=== PATIENT | male | born 2000 | race Caucasian/White ===

== ENCOUNTER 2022-07-03 13:56 | Emergency (ER) | payer OTHER ==
[2022-07-03] MEDS ORDERED: SODIUM CHLORIDE 0.9% 1,000 ML IV STA (14:12)
--- NOTE | 2022-07-03 14:22 | ED Physician Documentation ---
History of Present Illness - Stated complaint Stated Complaint: FEVER/ABD PX - Chief complaint Chief Complaint: Abd Pain - Additonal information Additional information: 22-year-old male presents emergency department for evaluation of lower abdominal pain has been present for about 1 week. Sometimes its in the right quadrant sometimes is in the lower left. He denies any constipation or straining with bowel movements. He did have low-grade fevers yesterday up to 100 degrees. He denies dysuria or hematuria but states his urine is darker than normal. He did speak with [facility] regarding his fevers a few days ago and was prescribed Tylenol but no other treatment was rendered. Denies any pertinent past medical history. Takes no prescribed medications. He does use tobacco. Rare alcohol use. Review of Systems Constitutional: denies: Fever, Chills Cardiac: reports: Reviewed and negative Respiratory: reports: Reviewed and negative GI: reports: Abdominal Pain, Nausea. denies: Vomiting, Constipation, Diarrhea, Bloody / black stool : denies: Dysuria Skin: reports: Reviewed and negative Musculoskeletal: reports: Reviewed and negative PD PAST MEDICAL HISTORY - Present Medications Home Medications: Ambulatory Orders Medication Instructions Recorded Confirmed Acetaminophen [Tylenol] 650 mg PO Q6H PRN 07/03/22 07/03/22 - Allergies Allergies/Adverse Reactions: Allergies Allergy/AdvReac Type Severity Reaction Status Date / Time Sulfa (Sulfonamide Allergy Unknown Verified 07/03/22 14:38 Antibiotics) PD ED PE NORMAL - General General: Alert and oriented X 3, No acute distress - HEENT HEENT: PERRL - Neck Neck: Supple, no meningeal sign, No adenopathy - Cardiac Cardiac: RRR, No murmur - Respiratory Respiratory: No respiratory distress, Clear bilaterally - Abdomen Abdomen: Normal bowel sounds, Soft. No: Non tender (generally tender abdomen; most dominate RUQ. + rebound. ) - Back Back: No CVA TTP - Derm Derm: Normal color, Warm and dry, No rash - Extremities Extremities: No deformity - Neuro Neuro: Alert and oriented X 3 Eye Opening: Spontaneous Motor: Obeys Commands Verbal: Oriented GCS Score: 15 Results - Vitals Vitals: Vital Signs - 24 hr 07/03/22 07/03/22 07/03/22 14:01 14:33 15:50 Temperature 36.6 C Heart Rate 95 75 63 Respiratory 16 16 16 Rate Blood Pressure 151/71 H 120/69 107/57 L O2 Saturation 99 99 100 Oxygen O2 Source Room air - Labs Labs: Laboratory Tests 07/03/22 07/03/22 07/03/22 14:18 14:26 14:26 WBC 11.9 H RBC 4.43 L Hgb 13.2 L Hct 39.6 L MCV 89.4 MCH 29.8 MCHC 33.3 RDW 12.1 Plt Count 103 L MPV 10.9 Neut # (Auto) Not Reportable Lymph # (Auto) Not Reportable [place] # (Auto) Not Reportable Eos # (Auto) Not Reportable Baso # (Auto) Not Reportable Absolute Nucleated RBC Not Reportable Total Counted 100 Band Neuts % (Manual) 1 Reactive Lymphs % (Man) 39 Abnorm Lymph % (Manual) 0 Nucleated RBC % Not Reportable Neutrophils # (Manual) 2.5 Lymphocytes # (Manual) 8.8 H Monocytes # (Manual) 0.5 Eosinophils # (Manual) 0.0 Basophils # (Manual) 0.1 Differential Comment MANUAL DIFFERENTIAL Platelet Estimate DECREASED (<130,000) Platelet Morphology NORMAL APPEARANCE RBC Morph Micro Appear NORMAL APPEARANCE Sodium 137 Potassium 3.3 L Chloride 105 Carbon Dioxide 27 Anion Gap 5.0 L BUN 11 Creatinine 0.9 Estimated GFR (MDRD) 106 Glucose 166 H Calcium 8.7 Total Bilirubin 1.6 H AST 454 H ALT 700 H Alkaline Phosphatase 132 H Total Protein 6.8 Albumin 3.4 Globulin 3.4 Albumin/Globulin Ratio 1.0 Lipase 44 Urine Color YELLOW Urine Clarity CLEAR Urine pH 6.0 Ur Specific [place] 1.015 Urine Protein NEGATIVE Urine Glucose (UA) 250 H Urine Ketones TRACE Urine Occult Blood NEGATIVE Urine Nitrite NEGATIVE Urine Bilirubin SMALL H Urine Urobilinogen 4 H Ur Leukocyte Esterase NEGATIVE Ur Microscopic Review NOT INDICATED Urine Culture Comments NOT INDICATED Acetaminophen 07/03/22 14:26 WBC RBC Hgb Hct MCV MCH MCHC RDW Plt Count MPV Neut # (Auto) Lymph # (Auto) [place] # (Auto) Eos # (Auto) Baso # (Auto) Absolute Nucleated RBC Total Counted Band Neuts % (Manual) Reactive Lymphs % (Man) Abnorm Lymph % (Manual) Nucleated RBC % Neutrophils # (Manual) Lymphocytes # (Manual) Monocytes # (Manual) Eosinophils # (Manual) Basophils # (Manual) Differential Comment Platelet Estimate Platelet Morphology RBC Morph Micro Appear Sodium Potassium Chloride Carbon Dioxide Anion Gap BUN Creatinine Estimated GFR (MDRD) Glucose Calcium Total Bilirubin AST ALT Alkaline Phosphatase Total Protein Albumin Globulin Albumin/Globulin Ratio Lipase Urine Color Urine Clarity Urine pH Ur Specific [place] Urine Protein Urine Glucose (UA) Urine Ketones Urine Occult Blood Urine Nitrite Urine Bilirubin Urine Urobilinogen Ur Leukocyte Esterase Ur Microscopic Review Urine Culture Comments Acetaminophen < 10 L - Rads (name of study) cxr Relevant Findings:: Final report received (No acute cardiopulmonary process) abd US Relevant Findings:: See rad report, Other (Per manufacturing engineering technologist negative for findings to suggest acute cholecystitis or cholelithiasis. Contracted gallbladder. Gallbladder wall is not thickened. No pericholecystic fluid. CBD [address] abd Relevant Findings:: Final report received (11 mm lesion right liver dome. Hemangioma versus complicated cyst.Fatty liver. Gallbladder wall is mildly hyperenhancing.) PD Medical Decision Making - ED course Complexity details: reviewed results, re-evaluated patient, considered differential, d/w patient ED course: 22-year-old male was brought to the emergency department for evaluation of 4 to 5 days abdominal discomfort and low-grade fevers at home. He did see [facility] on Wednesday and was started on Tylenol 325 mg every 4-6 hours to help with symptoms. He has taken on average 2 to 3 tablets of Tylenol a day for the last 2 to 3 days. Given that the abdominal discomfort has not dissipated he presents to the ER. On exam he was modestly tender in the right upper quadrant. We did obtain a CBC and electrolytes. Per my interpretation no significant findings were that of abnormal LFTs. His T. bili was modestly elevated at 1.6. ALT was 740 and AST was in the 350s. I discussed with patient and he denies excessive alcohol use. He last drink about 2 weeks ago and that was a solitary drink. 7 to 8 months ago he would drink 4-5 drinks in a setting however only once a week. Given the concerns of abnormal liver function test as well as recent Tylenol prescription Tylenol level was obtained and is not elevated. In addition it does not seem that he had abnormal Tylenol use in the preceding few days. His alcohol use also does not seem to be a predisposing factor. I did obtain an abdominal ultrasound that was unremarkable for findings of acute cholecystitis or gallbladder disease. Subsequently a CT of the abdomen was completed with contrast which again does not demonstrate acute gallbladder disease. There was a cyst noted within the right liver. This likely represents a complex cyst versus hemangioma. Patient is advised to follow this up as an outpatient. At this time the etiology of the abnormal liver function test, abdominal pain and low-grade fevers is not clear. A viral hepatitis panel is pending. I have advised patient to follow-up with [facility] in 72 hours time in order to have his LFTs reevaluated. If over the course of the weekend he is having worsening symptoms he will return to the ER. In addition to this he is vies to avoid alcohol and acetaminophen. Departure - Departure Disposition: Home, Self Care Clinical Impression: Abnormal liver function tests, Liver lesion Abdominal pain Qualifiers: Abdominal location: upper abdomen, unspecified Qualified Code(s): R10.10 - Upper abdominal pain, unspecified Condition: Stable Record reviewed to determine appropriate education?: Yes Instructions: Abdominal Pain, Liver Disease Testing Ch Comments: As discussed at the bedside you have had several days of some generalized abdominal pain as well as low-grade fevers. Here in the emergency department you did have abnormal liver function testing. We did evaluate your Tylenol level which was normal. An ultrasound of your abdomen did not show gallbladder disease. A CT of the abdomen also did not show gallbladder disease. It is possible that the cause of the abnormal liver function test is simply a virus. A viral hepatitis panel is pending. We will not have the results for several days. You can follow them up on the [facility] codetag portal though we will notify you if they are abnormal. The CT scan does show a cyst within your right liver that is likely a hemangioma or complex cyst. This should be reevaluated as an outpatient I would like you to discuss this ED visit with [facility]. Your liver function tests should be reevaluated on Wednesday to determine if they are trending up or down. I would like you to avoid Tylenol until cleared by your doctor. If you are having fever abdominal discomfort you can take small amount of ibuprofen 600 mg with food 2-3 times a day. If over the course of the week and you find that you are having worsening symptoms, develop new fevers, have severe abdominal pain or noticed any yellowing of your skin you should return immediately to the emergency department.
[2022-07-03 14:40] LABS: BASOPHILS % (AUTO) 1.3 %; EOSINOPHILS % (AUTO) 0.1 %; HCT - HEMATOCRIT 39.6 % (42.0-52.0); HGB - HEMOGLOBIN 13.2 g/dL (14.0-18.0); LYMPHOCYTES % (AUTO) 84.4 %; MEAN CORPUSCULAR HEMOGLOBIN 29.8 pg (27.0-31.0); MEAN CORPUSCULAR HGB CONC 33.3 g/dL (32.0-36.0); MEAN CORPUSCULAR VOLUME 89.4 fL (80.0-94.0); MEAN PLATELET VOLUME 10.9 fL (7.4-11.4); MONOCYTES % (AUTO) 2.6 %; NEUTROPHILS % (AUTO) 11.4 %; PLT - PLATELET COUNT 103 10^3/uL (130-450); RED BLOOD COUNT 4.43 10^6/uL (4.70-6.10); RED CELL DISTRIBUTION WIDTH 12.1 % (12.0-15.0); WHITE BLOOD COUNT 11.9 x10^3/uL (4.8-10.8)
[2022-07-03 14:43] LABS: GLUCOSE, URINE (UA) 250 mg/dL (NEGATIVE); KETONES,URINE (UA) TRACE mg/dL (NEGATIVE); LEUKOCYTE ESTERASE, URINE NEGATIVE (NEGATIVE); NITRITE,URINE NEGATIVE (NEGATIVE); OCCULT BLOOD,URINE NEGATIVE (NEGATIVE); PROTEIN,URINE NEGATIVE (NEGATIVE); UROBILINOGEN,URINE 4 E.U./dL (NORMAL)
[2022-07-03 14:44] LABS: ABNORMAL LYMPHS % (MANUAL) 0 %
[2022-07-03 14:48] LABS: BILIRUBIN,URINE SMALL (NEGATIVE); CLARITY,URINE CLEAR (CLEAR); ICTOTEST,URINE POSITIVE
[2022-07-03 15:00] LABS: ALBUMIN 3.4 g/dL (3.2-5.5); BILIRUBIN,TOTAL 1.6 mg/dL (0.2-1.0); CALCIUM 8.7 mg/dL (8.5-10.3); CREATININE 0.9 mg/dL (0.6-1.2); POTASSIUM 3.3 mmol/L (3.5-5.0); TOTAL PROTEIN 6.8 g/dL (6.7-8.2)
--- NOTE | 2022-07-03 15:03 | XRAY Report ---
PROCEDURE: Chest 1 View X-Ray INDICATIONS: chest pain TECHNIQUE: One view of the chest was acquired. COMPARISON: None. FINDINGS: Surgical changes and devices: None. Lungs and pleura: No pleural effusions or pneumothorax. Lungs are clear. Mediastinum: Mediastinal contours appear normal. Heart size is normal. Bones and chest wall: No suspicious bony lesions. Overlying soft tissues appear unremarkable. IMPRESSION: No acute cardiopulmonary process. Reviewed by: Boby Wilson on 07/03/2022 3:02 PM PDT Approved by: Boby Wilson on 07/03/2022 3:02 PM PDT Station ID: [id number]
[2022-07-03 15:35] LABS: BAND NEUTROPHILS % (MANUAL) 1 %; BASOPHILS # (MANUAL) 0.1 10^3/uL (0-0.1); BASOPHILS % (MANUAL) 1 %; LYMPHOCYTES # (MANUAL) 8.8 10^3/uL (1.5-3.5); LYMPHOCYTES % (MANUAL) 35 %; MONOCYTES # (MANUAL) 0.5 10^3/uL (0.0-1.0); NEUTROPHILS # (MANUAL) 2.5 10^3/uL (1.5-6.6); REACTIVE LYMPHS % (MANUAL) 39 %
[2022-07-03 15:36] LABS: DIFFERENTIAL COMMENT MANUAL DIFFERENTIAL; PLATELET ESTIMATE, MANUAL DECREASED (<130,000) (NORMAL); PLATELET MORPHOLOGY NORMAL APPEARANCE (NORMAL); RBC MORPHOLOGY (MULTIPLE) NORMAL APPEARANCE (NORMAL)
[2022-07-03] MEDS ORDERED: iohexoL-300 100 ML VIAL IVP ONE (16:27)
[2022-07-03] MEDS ORDERED: iohexoL-300 100 ML VIAL ONE (16:32)
--- NOTE | 2022-07-03 16:39 | CT Report ---
PROCEDURE: ABDOMEN/PELVIS W INDICATIONS: lower abdominal pain CONTRAST: 100 ml omni 300 TECHNIQUE: After the administration of IV contrast, 5 mm thick sections acquired from the diaphragms to the symp hysis. 5 mm thick coronal and sagittal reformats were acquired. For radiation dose reduction, the f ollowing was used: automated exposure control, adjustment of mA and/or kV according to patient size. COMPARISON: Correlation is made with the accompanying chest radiograph and abdominal ultrasound, 07/03 FINDINGS: Image quality: Excellent. Lung bases and heart: Unremarkable. Liver: Within the right liver dome, there is an 11 mm low-density lesion that measures 45 Hounsfield units and can't be defined as a simple cyst. Incidental note is made of focal fatty infiltration behzad cent to the falciform ligament, which is not regarded to the frankly pathologic. Gallbladder and biliary tree: The gallbladder wall is mildly hyperenhancing. Spleen: The spleen is enlarged, measuring 15.8 cm craniocaudal. Pancreas: Unremarkable. Adrenals: Unremarkable. Kidneys and ureters: Unremarkable. Bowel and peritoneum: No bowel distension. No pathologic free fluid. A normal appendix is seen. Lymph nodes: No central or retroperitoneal adenopathy. Vessels: Unremarkable. PELVIS Reproductive organs: Unremarkable. Bladder: Unremarkable. Lymph nodes: Unremarkable. Bones: No aggressive osseous abnormality. Other: None. IMPRESSION: Normal appendix No dilated loops of small bowel are seen. Splenomegaly. Within the right liver dome, there is an 11 mm lesion that cannot be defined as a simple cyst. Robert ioma versus a complicated cyst are most likely in a patient of this age. Attention should be paid to this focus on any future follow-up studies. Abnormal gallbladder by CT, with gallbladder wall hyperenhancement. However, a contracted, yet otherw ise normal gallbladder can be seen on the accompanying abdominal ultrasound. Reviewed by: Raleigh Rodríguez MD on 07/03/2022 3:37 PM KYLER Approved by: Raleigh Rodríguez MD on 07/03/2022 3:37 PM [place] Station ID: [id number]
--- NOTE | 2022-07-03 16:41 | Ultrasound Report ---
PROCEDURE: Abdomen Limited INDICATIONS: abnormal lft TECHNIQUE: Real-time focused scanning was performed of the abdomen, with image documentation. COMPARISONS: None. FINDINGS: Liver: Liver is normal in size and homogeneous in echotexture. The main portal vein demonstrates no rmal size and hepatopedal flow. Gallbladder: The bladder is contracted, as the patient is nothing by mouth. This limits evaluation. N o gallstones or significant sludge can be seen. The gallbladder wall does not appear thickened. There is no specific pericholecystic fluid. The sonographic Pace's sign is negative. Biliary ducts: Intrahepatic bile ducts are non-dilated. Extrahepatic bile duct caliber measures 4 m m. Normal is 6-7 mm or less in diameter, or 10 mm or less post-cholecystectomy. Pancreas: Visualized portions of the pancreas are sonographically normal. Right kidney: Normal in size and echotexture. Right kidney measures 10.5 cm long. No hydronephrosis or nephrolithiasis. No solid masses. No complex renal cystic lesions which require follow-up. Aorta: Visualized aorta is normal in caliber at less than 3 cm. IVC: Intrahepatic inferior vena cava is patent. Miscellaneous: No free abdominal fluid. IMPRESSION: Normal liver by ultrasound. Contracted gallbladder. No signs of cholecystitis seen by ultrasound. Note: Concordant preliminary findings given by the mixer attendant upon the completion of the examination to Dr. Carpenter at 3:30 PM on 07/03/2022. Reviewed by: Raleigh Rodríguez MD on 07/03/2022 3:40 PM KYLER Approved by: Raleigh Rodríguez MD on 07/03/2022 3:40 PM [place] Station ID: [id number]
[2022-07-03 17:39] VITALS: BP 115/70
[2022-07-04 08:09] LABS: HBsAG SCREEN Negative (Negative); HCV AB Non Reactive (Non Reactive); HEPATITIS B CORE IGM AB Negative (Negative)
== END 2022-07-03 17:39 | disposition home or self-care (01) ==
LOC: ED 13:56
DX: R10.817 Generalized abdominal tenderness (principal); R10.11 Right upper quadrant pain; R10.12 Left upper quadrant pain; R17 Unspecified jaundice; R79.89 Other specified abnormal findings of blood chemistry; K76.0 Fatty (change of) liver, not elsewhere classified; Z72.0 Tobacco use
CPT/HCPCS: 36415; 71045; 74177; 76705; 80053; 80074; 80307; 81003; 83690; 85025; 99284; Q9967; 81001; 87086

== ENCOUNTER 2023-06-28 09:20 | Outpatient (CLI) | payer OTHER ==
[2023-06-28] MEDS ORDERED: GADOTERATE MEGLUMINE 7.5 MMOL/15 ML VIAL ONE (09:28)
--- NOTE | 2023-06-28 11:42 | MRI Report ---
PROCEDURE: Abdomen W/WO INDICATIONS: ABD PAIN CONTRAST: clariscan 12.2ml TECHNIQUE: Coronal ultra fast SE, axial 2D spoiled GE in- and [id number]; axial breath-hold T2 fast SE. Dynam ic axial ultra fast GE during the administration of contrast; post-contrast coronal ultra fast GE or 2D spoiled GE with fat saturation from the hepatic dome to the iliac crests. Optional diffusion weig hted imaging and ADC may be performed. COMPARISON: Ultrasound 05/31/2023, CT 07/03/2022. FINDINGS: Image quality: Excellent. Lung bases and heart: Unremarkable. Liver: 1.3 cm hemangioma at the liver dome. 5 mm cyst in segment 7 and 7 mm cyst in segment 4. Gallbladder and biliary tree: No radiopaque stones or wall thickening. No biliary dilation. Spleen: No splenomegaly. Pancreas: No pancreatic ductal dilation. Adrenals: No adrenal nodule. Kidneys and ureters: No hydronephrosis. No renal cystic lesion which requires follow up. No solid mas s. Bowel and peritoneum: No bowel distension. No pathologic free fluid. Lymph nodes: No central or retroperitoneal adenopathy. Vessels: No infrarenal aortic aneurysm. Bones: No aggressive osseous abnormality. Other: No significant ventral hernia. IMPRESSION: Benign hepatic cysts and hemangioma. Otherwise, unremarkable exam. Reviewed by: Boby Wilson MD on 06/28/2023 11:41 AM PDT Approved by: Boby Wilson MD on 06/28/2023 11:41 AM PDT Station ID: [id number]
[2023-06-28] MEDS: GADOTERATE MEGLUMINE 7.5 MMOL/15 ML VIAL IVP ONE (15:32)
== END 2023-06-28 09:21 | disposition home or self-care (01) ==
LOC: DI 09:20
PROVIDERS: ATTEND Nurse Practitioner Family
DX: K76.89 Other specified diseases of liver (principal); D18.09 Hemangioma of other sites

== ENCOUNTER 2023-10-12 12:58 | Outpatient (CLI) | payer OTHER | END 2023-10-12 23:59 | disposition EMS.NT | LOC: EMS 12:58 | DX: F41.0 Panic disorder [episodic paroxysmal anxiety] (principal) ==

== ENCOUNTER 2023-10-13 14:56 | Emergency (ER) | payer OTHER ==
[2023-10-13 15:49] LABS: BASOPHILS # (AUTO) 0.1 10^3/uL (0.0-0.1); BASOPHILS % (AUTO) 1.1 %; EOSINOPHILS % (AUTO) 0.6 %; HCT - HEMATOCRIT 40.7 % (42.0-52.0); HGB - HEMOGLOBIN 13.7 g/dL (14.0-18.0); LYMPHOCYTES # (AUTO) 2.9 10^3/uL (1.5-3.5); MEAN CORPUSCULAR HEMOGLOBIN 29.9 pg (27.0-31.0); MEAN CORPUSCULAR HGB CONC 33.7 g/dL (32.0-36.0); MEAN CORPUSCULAR VOLUME 88.9 fL (80.0-94.0); MEAN PLATELET VOLUME 10.1 fL (7.4-11.4); MONOCYTES # (AUTO) 0.3 10^3/uL (0.0-1.0); MONOCYTES % (AUTO) 5.5 %; NEUTROPHILS # (AUTO) 2.2 10^3/uL (1.5-6.6); NEUTROPHILS % (AUTO) 39.6 %; PLT - PLATELET COUNT 208 10^3/uL (130-450); RED BLOOD COUNT 4.58 10^6/uL (4.70-6.10); RED CELL DISTRIBUTION WIDTH 12.1 % (12.0-15.0); WHITE BLOOD COUNT 5.5 x10^3/uL (4.8-10.8)
[2023-10-13 16:00] LABS: BUN - BLOOD UREA NITROGEN 12 mg/dL (6-20); CALCIUM 9.7 mg/dL (8.5-10.3); CARBON DIOXIDE - CO2 26 mmol/L (21-32); CHLORIDE 105 mmol/L (101-111); CREATININE 1.1 mg/dL (0.6-1.3); GFR - MDRD 83 (>89); GLUCOSE 97 mg/dL (74-104); POTASSIUM 3.5 mmol/L (3.5-4.5); SODIUM 139 mmol/L (135-145)
--- NOTE | 2023-10-13 16:01 | XRAY Report ---
PROCEDURE: Chest 2V INDICATIONS: chest pain TECHNIQUE: 2 views of the chest were acquired. COMPARISON: 07/03/2022. FINDINGS: Surgical changes and devices: None. Lungs and pleura: No pleural effusions or pneumothorax. Lungs are clear. Mediastinum: Mediastinal contours appear normal. Heart size is normal. Bones and chest wall: No suspicious bony lesions. Overlying soft tissues appear unremarkable. IMPRESSION: No acute cardiopulmonary process. Reviewed by: Nilo Bell MD on 10/13/2023 4:00 PM PDT Approved by: Nilo Bell MD on 10/13/2023 4:00 PM PDT Station ID: [id number]
[2023-10-13 16:05] LABS: TROPONIN I HIGH SENSITIVITY < 2.3 ng/L (2.3-19.7)
--- NOTE | 2023-10-13 16:10 | ED Physician Documentation ---
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 He has a history of PTSD and presents for evaluation of sensation of elevated heart rates, shortness of breath and migratory chest pains. He feels like his heart rate has been elevated for the last 3 days and starting yesterday he has had a variety of different types of chest pain coming and going. Does not seem to be a trigger to it. No positional component to it. He is also been short of breath since yesterday. He denies pedal edema or calf pain. He had a short plane flight a few weeks ago but no transcontinental flights or long car drives. No history of medical problems other than the PTSD which is currently treated only with therapy. PD PAST MEDICAL HISTORY - Past Medical History Past Medical History: Yes Psych: Panic attacks, Post traumatic stress disorder - Past Surgical History Past Surgical History: No - Present Medications Home Medications: Ambulatory Orders Medication Instructions Recorded Confirmed Acetaminophen [Tylenol] 650 mg PO Q6H PRN 07/03/22 07/03/22 Colchicine [Colcrys] 0.6 mg PO BID #60 tablet 10/13/23 - Allergies Allergies/Adverse Reactions: Allergies Allergy/AdvReac Type Severity Reaction Status Date / Time Sulfa (Sulfonamide Allergy Unknown Verified 10/13/23 15:37 Antibiotics) - Social History Does the pt smoke?: Yes Smoking Status: Current every day smoker Does the pt drink ETOH?: Yes Does the pt have substance abuse?: No - Immunizations Immunizations are current?: Yes - POLST Patient has POLST: No PD ED PE NORMAL - Vitals Vital signs reviewed: Yes - General General: Alert and oriented X 3, Other (He is hyperventilating) - Neck Neck: Supple, no meningeal sign, No bony TTP - Cardiac Cardiac: RRR, No murmur, No rub (Sitting or supine) - Respiratory Respiratory: No respiratory distress, Clear bilaterally - Abdomen Abdomen: Non tender - Extremities Extremities: No edema, No calf tenderness / cord - Neuro Neuro: Alert and oriented X 3, Normal speech Eye Opening: Spontaneous Motor: Obeys Commands Verbal: Oriented GCS Score: 15 - Psych Psych: Normal mood, Normal affect Results - Vitals Vitals: Vital Signs - 24 hr 10/13/23 15:03 Temperature 36.8 C Heart Rate 86 Respiratory 16 Rate Blood Pressure 130/75 O2 Saturation 100 Oxygen O2 Source Room air - EKG (time done) 1510 EKG releavant findings:: EKG personally interpreted by author of this note. Relevant findings are: Rate: Rate (enter#) (83) Rhythm: NSR [place]: Normal Intervals: Normal MO Ischemia: Other (He has widespread ST elevation with mild MO depression. This is consistent with pericarditis.) Compare to prior EKG: Old EKG unavailable Computer interpretation: Disagree with computer - Labs Labs: Laboratory Tests 10/13/23 10/13/23 15:31 15:31 WBC 5.5 RBC 4.58 L Hgb 13.7 L Hct 40.7 L MCV 88.9 MCH 29.9 MCHC 33.7 RDW 12.1 Plt Count 208 MPV 10.1 Neut # (Auto) 2.2 Lymph # (Auto) 2.9 [place] # (Auto) 0.3 Eos # (Auto) 0.0 Baso # (Auto) 0.1 Absolute Nucleated RBC 0.00 Nucleated RBC % 0.0 Sodium 139 Potassium 3.5 Chloride 105 Carbon Dioxide 26 Anion Gap 8.0 BUN 12 Creatinine 1.1 Estimated GFR (MDRD) 83 L Glucose 97 Calcium 9.7 Troponin I High Sens < 2.3 L - Rads (name of study) 2 view chest x-ray is normal Relevant Findings:: Final report received, EMP independent interpretation of test PD Medical Decision Making - ED course ED course: 23-year-old gentleman presents with acute chest pain. He has a heart score of 0 and is PERC negative but his EKG is consistent with pericarditis. He is also having a lot of anxiety with it. Will treat with NSAIDs and colchicine pending follow-up. Workup in the emergency department shows a normal chest x-ray, very mild normocytic anemia on CBC, normal BMP, negative/normal troponin. Departure - Departure Disposition: 01 Home, Self Care Clinical Impression: Pericarditis Qualifiers: Pericarditis type: idiopathic Chronicity: acute Qualified Code(s): I30.0 - Acute nonspecific idiopathic pericarditis Condition: Good Record reviewed to determine appropriate education?: Yes Instructions: ED Chest Pain Pericarditis Prescriptions: Colchicine [Colcrys] 0.6 mg PO BID #60 tablet Comments: Looking at your EKG I believe you do have what is called pericarditis today, and this probably has exacerbated your anxiety/PTSD. Pericarditis is generally a benign/nondangerous illness but we would of course want you to return if you worsen. It is treated with nonsteroidal anti-inflammatory drugs like ibuprofen and another anti-inflammatory called colchicine. Call your doctor to arrange a follow-up appointment, make the next available appointment. In the interim, return anytime if worse or if new symptoms develop. [place] colchicine is generally you take it for 3 months, I am prescribing the first month worth. You should also have restricted activities. For the ibupr ofen you can take 600 mg (3 tablets) 4 times a day. Forms: PCP List
[2023-10-13] MEDS: IBUPROFEN 600 MG TABLET PO STA (16:23)
[2023-10-13 16:35] VITALS: BP 123/68; O2SAT 99
== END 2023-10-13 16:32 | disposition home or self-care (01) ==
LOC: ED 14:56
DX: I30.0 Acute nonspecific idiopathic pericarditis (principal); F41.9 Anxiety disorder, unspecified; F43.10 Post-traumatic stress disorder, unspecified; F17.200 Nicotine dependence, unspecified, uncomplicated
CPT/HCPCS: 36415; 71046; 80048; 84484; 85025; 93005; 99284; A9270

== ENCOUNTER 2023-10-18 09:40 | Emergency (ER) | payer OTHER ==
[2023-10-18] MEDS: IBUPROFEN 800 MG TABLET PO STA (10:25)
--- NOTE | 2023-10-18 10:43 | XRAY Report ---
PROCEDURE: Chest 2V INDICATIONS: chest pain, pericarditis TECHNIQUE: 2 views of the chest were acquired. COMPARISON: 10/13/2023. FINDINGS: Surgical changes and devices: None. Lungs and pleura: No pleural effusions or pneumothorax. Lungs are clear. Mediastinum: Mediastinal contours appear normal. Heart size is normal. Bones and chest wall: No suspicious bony lesions. Overlying soft tissues appear unremarkable. IMPRESSION: No acute cardiopulmonary process. Reviewed by: Nilo Bell MD on 10/18/2023 10:41 AM PDT Approved by: Nilo Bell MD on 10/18/2023 10:41 AM PDT Station ID: [id number]
--- NOTE | 2023-10-18 10:54 | ED Physician Documentation ---
History of Present Illness - Stated complaint Stated Complaint: CHEST PX,LIGHTHEADED,DIZZINESS - Chief complaint Chief Complaint: Cardiac - History obtained from History obtained from: Patient - History of Present Illness Timing: How many weeks ago (1) Pain level max: 5 Pain level now: 5 - Additonal information Additional information: 23-year-old male, active [employer], presents to the emergency department complaining of continued chest pain. Was diagnosed with pericarditis last week. He states that [place] [employer] [place], but was told that they cannot see him so should come back to the emergency department for a work note. He said overall he feels better than when he was here last week but is still having chest pain. He is currently taking colchicine. He states he is occasionally taking NSAIDs. No fevers. No chills. No cough. No congestion. Pain is worse with lying flat. Review of Systems Constitutional: denies: Fever, Chills Ears: denies: Ear pain Nose: denies: Rhinorrhea / runny nose, Congestion Respiratory: denies: Cough, Hemoptysis, Wheezing GI: denies: Abdominal Pain, Vomiting, Diarrhea Skin: denies: Rash Musculoskeletal: denies: Neck pain, Back pain Neurologic: denies: Headache PD PAST MEDICAL HISTORY - Past Medical History Past Medical History: Yes Psych: Panic attacks, Post traumatic stress disorder - Past Surgical History Past Surgical History: No - Present Medications Home Medications: Ambulatory Orders Medication Instructions Recorded Confirmed Acetaminophen [Tylenol] 650 mg PO Q6H PRN 07/03/22 07/03/22 Colchicine [Colcrys] 0.6 mg PO BID #60 tablet 10/13/23 Esomeprazole Magnesium [Nexium] 40 mg PO DAILY #30 cap 10/18/23 Ibuprofen [Motrin] 800 mg PO Q8H #60 tablet 10/18/23 - Allergies Allergies/Adverse Reactions: Allergies Allergy/AdvReac Type Severity Reaction Status Date / Time Sulfa (Sulfonamide Allergy Unknown Verified 10/18/23 09:42 Antibiotics) - Social History Does the pt smoke?: Yes Smoking Status: Current every day smoker Does the pt drink ETOH?: Yes Does the pt have substance abuse?: No - Immunizations Immunizations are current?: Yes - POLST Patient has POLST: No PD ED PE NORMAL - Vitals Vital signs reviewed: Yes - General General: Alert and oriented X 3, No acute distress - HEENT HEENT: Moist mucous membranes - Neck Neck: Supple, no meningeal sign - Cardiac Cardiac: RRR, No murmur, Strong equal pulses - Respiratory Respiratory: No respiratory distress, Clear bilaterally - Abdomen Abdomen: Soft, Non tender, Non distended - Derm Derm: Warm and dry - Extremities Extremities: No edema, No calf tenderness / cord - Neuro Neuro: Alert and oriented X 3 - Psych Psych: Normal mood, Normal affect Results - Vitals Vitals: Vital Signs - 24 hr 10/18/23 10/18/23 09:42 11:06 Temperature 36.2 C L 36.8 C Heart Rate 72 72 Respiratory 16 14 Rate Blood Pressure 120/83 H 111/73 O2 Saturation 99 95 Oxygen O2 Source Room air - EKG (time done) 1009 EKG releavant findings:: EKG personally interpreted by author of this note. Relevant findings are: Rate: Rate (enter#) (61) Rhythm: NSR [place]: Normal Intervals: Normal [place] QRS: Normal Ischemia: Normal ST segments, ST elevation c/w repol - Rads (name of study) cxr Relevant Findings:: Final report received, See rad report PD Medical Decision Making - ED course Complexity details: reviewed results, re-evaluated patient, considered differential (no PE, no ACS, no PTX), d/w patient ED course: Patient with continued symptoms of pericarditis. He is overall improved. We will add non-steroidal anti-inflammatory medications around the clock to the colchicine. We will write a work note for him. No evidence of significant dae cardial effusion. No jvd. No muffled heart sounds. No indication for further work up at this time. Patient counseled regarding signs and symptoms for which I believe an urgent re- evaluation would be necessary. Patient with good understanding of and agreement to plan and is comfortable going home at this time. This document was made in part using voice recognition software. While efforts are made to proofread this document, sound alike and grammatical errors may occur. Departure - Departure Disposition: 01 Home, Self Care Clinical Impression: Pericarditis Qualifiers: Pericarditis type: unspecified type Chronicity: acute Qualified Code(s): I30.9 - Acute pericarditis, unspecified Condition: Good Instructions: ED Chest Pain Pericarditis Follow-Up: your,doctor in 1 week [Other] Prescriptions: Ibuprofen [Motrin] 800 mg PO Q8H #60 tablet Esomeprazole Magnesium [Nexium] 40 mg PO DAILY #30 cap Comments: Your prescriptions were sent to [facility]. [place]. You need to be taking the Motrin 3 times a day. This usually needs to be tapered over several weeks. We have also placed you on Nexium to help protect your stomach from developing an ulcer. Forms: PCP List, Activity restrictions Discharge Date/Time: 10/18/23 11:06
[2023-10-18 11:11] VITALS: BP 111/73; O2SAT 95
== END 2023-10-18 11:06 | disposition home or self-care (01) ==
LOC: ED 09:40
DX: I30.9 Acute pericarditis, unspecified (principal); F17.290 Nicotine dependence, other tobacco product, uncomplicated
CPT/HCPCS: 71046; 93005; 99283; 99284; A9270